=== PATIENT | male | born 1970 | race Caucasian/White ===

== ENCOUNTER 2017-10-07 13:38 | Outpatient (CLI) | payer OTHER | END 2017-10-07 17:00 | disposition home or self-care (01) | LOC: DCC 13:38 | DX: L02.214 Cutaneous abscess of groin (principal); E11.9 Type 2 diabetes mellitus without complications; I10 Essential (primary) hypertension; E66.9 Obesity, unspecified; Z68.42 Body mass index [BMI] 45.0-49.9, adult; Z88.0 Allergy status to penicillin | CPT/HCPCS: G0463 ==

== ENCOUNTER 2017-10-21 14:56 | Outpatient (CLI) | payer OTHER | END 2017-10-21 15:57 | disposition home or self-care (01) | LOC: DCC 14:56 | DX: L02.214 Cutaneous abscess of groin (principal); I10 Essential (primary) hypertension; E11.9 Type 2 diabetes mellitus without complications; Z79.84 Long term (current) use of oral hypoglycemic drugs; Z88.0 Allergy status to penicillin | CPT/HCPCS: G0463 ==